=== PATIENT | male | born 1955 | race Caucasian/White ===

== ENCOUNTER 2017-03-15 05:41 | Day surgery (SDC) | payer OTHER ==
[2017-03-15 06:26] LABS: ANION GAP 15.8 MEQ/L (5-15); BLOOD UREA NITROGEN 9 mg/dL (9-20); CHLORIDE 103 mEq/L (98-107); Carbon Dioxide 28.6 mEq/L (21-32); Cholesterol 165 mg/dL (100-200); Glucose 258 MG/DL (70-110); LDL, DIRECT 97 mg/dL (5-99); Potassium 4.9 mEq/L (3.5-5.1); SODIUM 143 mEq/L (136-145); TRIGLYCERIDE 71 mg/dL (30-200)
[2017-03-15] MEDS ORDERED: Lactated Ringers 1,000 ML IV SCH (06:30)
--- NOTE | 2017-03-15 07:55 | OP ---
SURGERY DATE/TIME: 03/15/2017721 PREOPERATIVE DIAGNOSIS: Screening exam. POSTOPERATIVE DIAGNOSIS: Normal colon. PROCEDURE: Colonoscopy. SURGEON: Dr. Montalvo. ANESTHESIA: Medications given by anesthesia department. HISTORY: The patient is a 61 year-old white male patient presenting now for screening colonoscopy. He was appraised of the risks of the procedure including the risk of perforation, phlebitis, untoward reaction to medication, bleeding and missed lesions. The patient verbalized his understanding and desired to have the procedure performed. DESCRIPTION OF PROCEDURE: The patient was given the medications by the anesthesia department. He had continuous pulse oximetry, ECG monitoring, intermittent blood pressure monitoring and tidal CO2 monitoring during the examination. He was placed in the left lateral decubitus position. A digital rectal examination was performed and revealed normal anal sphincter tone and no masses and normal prostate. The flexible Olympus pediatric colonoscope was used to intubate the rectum. A view of the colon was developed sequentially to the cecum. Upon insertion and withdrawal, including a retroflex view in the rectum, no mucosal lesions were encountered. The scope was removed from the patient who tolerated the procedure well and was sent back to OP recovery in good condition. The prep was noted to be fair.
[2017-03-15] MEDS ORDERED: Versed 2 MG/2 ML Injection IV ONE (08:00)
[2017-03-15] MEDS ORDERED: DIPRIVAN 200 MG/20 ML IV ONE (08:00)
[2017-03-15 08:21] VITALS: O2SAT 97
[2017-03-15 09:30] VITALS: BP 142/87; PULSE 83
== END 2017-03-15 09:00 | disposition home or self-care (01) ==
LOC: SDC 05:41
PROVIDERS: ATTEND Family Medicine
PROC: 0DJD8ZZ Inspection of Lower Intestinal Tract, Via Natural or Artificial Opening Endoscopic (ICD-10-PCS; principal; 2017-03-15)
DX: Z12.11 Encounter for screening for malignant neoplasm of colon (principal); E11.9 Type 2 diabetes mellitus without complications; Z79.4 Long term (current) use of insulin; Z79.899 Other long term (current) drug therapy
CPT/HCPCS: 00810; 36415; 80048; 80061; 82962; 83036; 83721; J2250; J2704

== ENCOUNTER 2020-11-13 06:47 | Day surgery (SDC) | payer OTHER | END 2020-11-13 07:40 | disposition home or self-care (01) | LOC: SDC-PAIN 06:47 | PROVIDERS: ATTEND Psychiatry & Neurology Pain Medicine | DX: Z53.09 Procedure and treatment not carried out because of other contraindication (principal); E11.9 Type 2 diabetes mellitus without complications | CPT/HCPCS: 82947 ==

== ENCOUNTER 2020-12-23 13:39 | Observation (INO) | payer OTHER ==
[2020-12-23 14:21] LABS: Absolute Neutrophil Ct (ANC) 9.49 (1.4-6.9); BASOPHIL % 0.4 % (0.0-0.4); Basophil (Absolute #) 0.05 (0-0.4); Eosinophil % 3.1 % (0.00-5.0); Eosinophil (Absolute #) 0.43 (0-0.5); Hematocrit 36.9 % (42-50); Hemoglobin 12.2 gm/dl (12.5-18.0); Lymphocyte (Absolute #) 2.72 (1.0-4.6); Lymphocytes % 19.8 % (24.0-44.0); Mean Cell Volume 84.4 fl (78-100); Mean Corpuscular Hemoglobin 27.9 pg (26-32); Mean Corpuscular Hgb Concent. 33.1 g/dl (32-36); Mean Platelet Volume 9.1 fl (7.5-11.0); Monocyte (Absolute #) 1.08 (0.0-1.3); Monocytes % 7.8 % (0.0-12.0); Neutrophil % 68.9 % (36.0-66.0); Platelet Count 186 K/mm3 (150-450); Red Blood Count 4.37 M/mm3 (4.1-5.6); Red Cell Distribution Width 14.3 % (11.5-14.0); White Blood Count 13.8 K/mm3 (4.0-10.5)
[2020-12-23 14:31] LABS: ALBUMIN 3.6 g/dL (3.5-5.0); ALKALINE PHOSPHATASE 96 U/L (38-126); ANION GAP 9.7 MEQ/L (5-15); BLOOD UREA NITROGEN 21 mg/dL (9-20); CHLORIDE 106 mmol/L (98-107); Carbon Dioxide 24 mmol/L (22-30); Creatinine 1 1.12 mg/dL (0.66-1.25); EST GLOMERULAR FILTRATION RATE > 60.0 ML/MIN; Glucose 228 mg/dL (74-106); Potassium 3.8 mmol/L (3.5-5.1); SGOT/AST 41 U/L (17-59); SGPT/ALT 24 U/L (0-50); SODIUM 136 mmol/L (137-145); Total Protein 6.2 g/dL (6.3-8.2)
--- NOTE | 2020-12-23 14:33 | ERPHSYRPT ---
- History of Present Illness Source: patient Exam Limitations: other (Extremely poor historian) Patient Subjective Stated Complaint: Pt states "I get dizzy lately, for the past 2 weeks and I have been falling. I fell yesterday and really hurt my right foot." Triage Nursing Assessment: Pt presented alert and oriented X 3, skin pwd Pt able to speak in clear full sentences. Pt right lens fabricating machine tender to touch on the top of foot. PT in no apparent respiratory distress Physician History: 65 yo wm who is an extremely poor historian presents by ambulance w lethargy/Frequent falls/R foot injury x 2 wks. Pt denies focal weakness but has been a little dizzy. He also denies fever/cough/dysuria/hematuria/cough/coryza/chest pain/N/V/D. Timing/Duration: other (2 wks) Severity: mild Associated Symptoms: No nausea, No vomiting, No abdominal pain, No shortness of breath, No heartburn, No diaphoresis, No cough, No chills, No chest pain, No fever, No headaches, No loss of appetite, No malaise, No rash, No syncope, No seizure Allergies/Adverse Reactions: Penicillins Allergy (Verified 03/15/17 06:35) Swelling Home Medications: Glipizide 5 mg [Glucotrol 5 MG] 5 mg PO BID 01/12/17 [History] AMITRIPTYLINE HCL 50 mg Tab [AMITRIPTYLINE HCL 50 mg Tablet] 50 mg PO DAILY 12/23/20 [History] Aspirin 81 mg PO DAILY 12/23/20 [History] Atorvastatin Calcium 20 mg PO DAILY 12/23/20 [History] Carvedilol 3.125 mg [Coreg 3.125 MG] 3.125 mg PO BID 12/23/20 [History] Cyclobenzaprine HCl 10 mg [Cyclobenzaprine 10 MG] 10 mg PO TID PRN 12/23/20 [History] Gabapentin 800 mg PO TID 12/23/20 [History] Hydrocodone/Acetaminophen [Hydrocodone-Acetamin 5-325 mg] 1 tab PO Q6H PRN PRN 12/23/20 [History] Meloxicam [Mobic] 15 mg PO DAILY 12/23/20 [History] Sitagliptin Phosphate [Januvia] 25 mg PO DAILY 12/23/20 [History] Hx Tetanus, Diphtheria Vaccination/Date Given: No Hx Influenza Vaccination/Date Given: No Hx Pneumococcal Vaccination/Date Given: No Immunizations Up to Date: Yes Travel Risk - International Travel Have you traveled outside of the country in past 3 weeks: No - Coronavirus Screening Are you exhibiting any of the following symptoms?: No Close contact with a COVID-19 positive Pt in past 14-21 Days: No - Vaccine Status Have you recieved a Covid-19 vaccination: No - Review of Systems Constitutional: No Symptoms, Fatigue, Lethargy Eyes: No Symptoms Ears, Nose, & Throat: No Symptoms Respiratory: No Symptoms Cardiac: No Symptoms Abdominal/Gastrointestinal: No Symptoms Genitourinary Symptoms: No Symptoms Musculoskeletal: No Symptoms, Other (R foot pain s/p fall) Skin: No Symptoms Neurological: Dizziness, Lethargy, Sensory Changes (Diabetic neuropathy), No Focal Weakness, No Headache, No Irritability, No Paralysis, No Parasthesia, No Seizure Psychological: No Symptoms Endocrine: No Symptoms Hematologic/Lymphatic: No Symptoms Immunological/Allergic: No Symptoms - Past Medical History Pertinent Past Medical History: Yes Neurological History: Peripheral Neuropathy Cardiac History: High Cholesterol, Hypertension Respiratory History: No Pertinent History Endocrine Medical History: Diabetes Type II Musculoskeletal History: Arthritis GI Medical History: No Pertinent History History: No Pertinent History Psycho-Social History: No Pertinent History Male Reproductive Disorders: No Pertinent History Other Medical History: Rheumatic Fever, Depression. Sx Hx: L Cubital Tunnel Release, L lower arm sx for mass removal, L Carpal Tunnel Release - Past Surgical History Past Surgical History: Yes Neuro Surgical History: No Pertinent History Cardiac: No Pertinent History Respiratory: No Pertinent History Gastrointestinal: No Pertinent History Genitourinary: No Pertinent History Musculoskeletal: Orthopedic Surgery Male Surgical History: No Pertinent History Other Surgical History: left elbow - Social History Smoking Status: Current every day smoker How long have you smoked: years Exposure to second hand smoke: Yes Drug Use: none Patient Lives Alone: Yes - Nursing Vital Signs Nursing Vital Signs: Initial Vital Signs Temperature 98.3 F 12/23/20 13:41 Pulse Rate 69 12/23/20 13:41 Respiratory Rate 22 12/23/20 13:41 Blood Pressure 129/81 12/23/20 13:41 O2 Sat by Pulse Oximetry 92 L 12/23/20 13:41 Pain Scale Pain Intensity 4 - Physical Exam General Appearance: no apparent distress Eye Exam: PERRL/EOMI, eyes nml inspection Ears, Nose, Throat Exam: normal ENT inspection, TMs normal, pharynx normal, moist mucous membranes Neck Exam: normal inspection, non-tender, supple, full range of motion, No meningismus, No mass, No Brudzinski, No Kernig's Respiratory Exam: normal breath sounds, lungs clear, airway intact, No respiratory distress Cardiovascular Exam: regular rate/rhythm, normal heart sounds, No murmur Gastrointestinal/Abdomen Exam: soft, normal bowel sounds, No tenderness Back Exam: normal inspection, normal range of motion, No CVA tenderness, No vertebral tenderness Extremity Exam: pelvis stable, tenderness (R 4th MTP joint w edema/ecchymosis/Good pedal pulse, distal sensation, and capillary return) Neurologic Exam: alert, oriented x 3, cooperative, merchandise flow associate II-XII nml as tested, normal mood/affect, sensation nml, No motor deficits, No sensory deficit Skin Exam: normal color, warm, dry Lymphatic Exam: No adenopathy SpO2 Interpretation: borderline oxygenation SpO2: 92 O2 Delivery: Room Air - Course Nursing assessment & vital signs reviewed: Yes EKG Interpreted by Me: RATE (Sinus tach/Normal QT-QTc/IVCD/PVC/Old inferior [place]) Ordered Tests: Active Orders 24 hr Category Date Time Status CHEST 1 VIEW (PORTABLE) Stat Exams 12/23/20 13:59 Completed FOOT (MINIMUM 3 VIEWS) Stat Exams 12/23/20 14:28 Completed HEAD WITHOUT CONTRAST [CT] Stat Exams 12/23/20 14:00 Completed BLOOD CULTURE Stat Lab 12/23/20 16:15 Received CBC W DIFF Stat Lab 12/23/20 14:18 Completed CMP Stat Lab 12/23/20 14:18 Completed CULTURE,URINE Stat Lab 12/23/20 15:00 Received Lactic Acid Stat Lab 12/23/20 14:23 Completed TROPONIN Q3H Lab 12/23/20 14:45 Completed TROPONIN Q3H Lab 12/23/20 16:15 Completed UA W/RFX UR CULTURE Stat Lab 12/23/20 15:00 Completed Medication Summary Generic Name Dose Route Start Last Admin Trade Name Freq PRN Reason Stop Dose Admin Carvedilol 3.125 mg 12/23/20 22:00 12/23/20 22:17 Coreg 3.125 Mg PO 01/22/21 21:59 3.125 mg BID COLETTE Administration Cyclobenzaprine HCl 10 mg 12/23/20 21:30 Cyclobenzaprine 10 Mg PO 01/22/21 21:29 TID PRN PRN MUSCLE SPASMS Gabapentin 800 mg 12/23/20 22:00 12/23/20 22:16 Neurontin 400 Mg PO 01/22/21 21:59 800 mg TID COLETTE Administration Glipizide 5 mg 12/24/20 08:00 Glucotrol 5 Mg PO 01/23/21 07:59 BIDWM COLETTE Sodium Chloride 1,000 mls @ 100 mls/hr 12/23/20 17:15 12/23/20 17:42 Sodium Chloride 0.9% 1000 Ml IV 01/22/21 17:14 100 mls/hr .Q10H COLETTE Administration Ceftriaxone Sodium/Dextrose 1 g in 50 mls @ 100 mls/hr 12/24/20 10:00 Rocephin 1 Gm-D5w 50 Ml Bag IV 12/27/20 09:59 Q24H10 COLETTE Insulin Human Lispro 0 unit 12/23/20 17:17 12/23/20 22:16 Humalog SQ 01/22/21 17:16 4 unit UD PRN Administration HYPERGLYCEMIA Ondansetron HCl 4 mg 12/23/20 17:12 Zofran 4 Mg/2 Ml Vial IV 01/22/21 17:11 Q6H PRN PRN NAUSEA/VOMITING Oxycodone/Acetaminophen 1 tab 12/23/20 21:32 12/23/20 22:24 Percocet Tablet 5/325mg PO 12/28/20 21:31 1 tab Q6H PRN PRN Administration PAIN Pantoprazole Sodium 40 mg 12/24/20 10:00 Protonix 40 Mg Iv IV 01/23/21 09:59 Q24H10 COLETTE Discontinued Medications Generic Name Dose Route Start Last Admin Trade Name Freq PRN Reason Stop Dose Admin Hydrocodone Bitart/Acetaminophen Confirm 12/23/20 21:40 [place] 5/325 Mg Administered 12/23/20 21:41 Dose 1 tab .ROUTE .STK-MED ONE Ceftriaxone Sodium/Dextrose 1 g in 50 mls @ 100 mls/hr 12/23/20 15:32 12/23/20 16:11 Rocephin 1 Gm-D5w 50 Ml Bag IV 12/23/20 16:01 Infused STAT STA Infusion Ceftriaxone Sodium/Dextrose Confirm 12/23/20 15:34 Rocephin 1 Gm-D5w 50 Ml Bag Administered 12/23/20 15:35 Dose 1 g in 50 mls @ ud IV .STK-MED ONE Lab/Rad Data: Laboratory Result Diagrams 12/23/20 14:18 12/23/20 14:18 Laboratory Results 12/23/20 12/23/20 12/23/20 Range/Units 16:15 15:53 15:00 WBC (4.0-10.5) K/mm3 RBC (4.1-5.6) M/mm3 Hgb (12.5-18.0) gm/dl Hct (42-50) % MCV (78-100) fl MCH (26-32) pg MCHC (32-36) g/dl RDW (11.5-14.0) % Plt Count (150-450) K/mm3 MPV (7.5-11.0) fl Gran % (36.0-66.0) % Eos # (Auto) (0-0.5) Absolute Lymphs (auto) (1.0-4.6) Absolute Monos (auto) (0.0-1.3) Lymphocytes % (24.0-44.0) % Monocytes % (0.0-12.0) % Eosinophils % (0.00-5.0) % Basophils % (0.0-0.4) % Absolute Granulocytes (1.4-6.9) Basophils # (0-0.4) Sodium (137-145) mmol/L Potassium (3.5-5.1) mmol/L Chloride (98-107) mmol/L Carbon Dioxide (22-30) mmol/L Anion Gap (5-15) MEQ/L BUN (9-20) mg/dL Creatinine (0.66-1.25) mg/dL Estimated GFR ML/MIN Glucose (74-106) mg/dL Lactic Acid (0.4-2.0) Calcium (8.4-10.2) mg/dL Total Bilirubin (0.2-1.3) mg/dL AST (17-59) U/L ALT (0-50) U/L Alkaline Phosphatase (38-126) U/L Troponin I < 0.012 (0.000-0.034) ng/mL Serum Total Protein (6.3-8.2) g/dL Albumin (3.5-5.0) g/dL Urine Color YELLOW (YELLOW) Urine Appearance SLIGHTLY CLOUDY (CLEAR) Urine pH 5.0 (5-6) Ur Specific [place] 1.023 (1.005-1.025) Urine Protein 30 (Negative) Urine Ketones NEGATIVE (NEGATIVE) Urine Blood MODERATE (0-5) Nigel/ul Urine Nitrite NEGATIVE (NEGATIVE) Urine Bilirubin NEGATIVE (NEGATIVE) Urine Urobilinogen NEGATIVE (0-1) mg/dL Ur Leukocyte Esterase TRACE (NEGATIVE) Urine WBC (Auto) 16-25 (0-5) /HPF Urine RBC (Auto) 26-50 (0-2) /HPF U Hyaline Cast (Auto) 6-10 (0-2) /LPF U Epithel Cells (Auto) NONE (FEW) /HPF Urine Bacteria (Auto) NONE (NEGATIVE) /HPF Urine Mucus (Auto) SLIGHT (NEGATIVE) /HPF Urine Culture Reflexed YES (NO) Urine Glucose >=500 (NEGATIVE) mg/dL Influenza Type A Ag NEGATIVE (NEGATIVE) Influenza Type B Ag NEGATIVE (NEGATIVE) RSV (PCR) NEGATIVE (Negative) SARS-CoV-2 (PCR) NEGATIVE (NEGATIVE) 12/23/20 12/23/20 12/23/20 Range/Units 14:45 14:23 14:18 WBC (4.0-10.5) K/mm3 RBC (4.1-5.6) M/mm3 Hgb (12.5-18.0) gm/dl Hct (42-50) % MCV (78-100) fl MCH (26-32) pg MCHC (32-36) g/dl RDW (11.5-14.0) % Plt Count (150-450) K/mm3 MPV (7.5-11.0) fl Gran % (36.0-66.0) % Eos # (Auto) (0-0.5) Absolute Lymphs (auto) (1.0-4.6) Absolute Monos (auto) (0.0-1.3) Lymphocytes % (24.0-44.0) % Monocytes % (0.0-12.0) % Eosinophils % (0.00-5.0) % Basophils % (0.0-0.4) % Absolute Granulocytes (1.4-6.9) Basophils # (0-0.4) Sodium 136 L (137-145) mmol/L Potassium 3.8 (3.5-5.1) mmol/L Chloride 106 (98-107) mmol/L Carbon Dioxide 24 (22-30) mmol/L Anion Gap 9.7 (5-15) MEQ/L BUN 21 H (9-20) mg/dL Creatinine 1.12 (0.66-1.25) mg/dL Estimated GFR > 60.0 ML/MIN Glucose 228 H (74-106) mg/dL Lactic Acid 1.4 (0.4-2.0) Calcium 9.0 (8.4-10.2) mg/dL Total Bilirubin 0.30 (0.2-1.3) mg/dL AST 41 (17-59) U/L ALT 24 (0-50) U/L Alkaline Phosphatase 96 (38-126) U/L Troponin I < 0.012 (0.000-0.034) ng/mL Serum Total Protein 6.2 L (6.3-8.2) g/dL Albumin 3.6 (3.5-5.0) g/dL Urine Color (YELLOW) Urine Appearance (CLEAR) Urine pH (5-6) Ur Specific [place] (1.005-1.025) Urine Protein (Negative) Urine Ketones (NEGATIVE) Urine Blood (0-5) Nigel/ul Urine Nitrite (NEGATIVE) Urine Bilirubin (NEGATIVE) Urine Urobilinogen (0-1) mg/dL Ur Leukocyte Esterase (NEGATIVE) Urine WBC (Auto) (0-5) /HPF Urine RBC (Auto) (0-2) /HPF U Hyaline Cast (Auto) (0-2) /LPF U Epithel Cells (Auto) (FEW) /HPF Urine Bacteria (Auto) (NEGATIVE) /HPF Urine Mucus (Auto) (NEGATIVE) /HPF Urine Culture Reflexed (NO) Urine Glucose (NEGATIVE) mg/dL Influenza Type A Ag (NEGATIVE) Influenza Type B Ag (NEGATIVE) RSV (PCR) (Negative) SARS-CoV-2 (PCR) (NEGATIVE) 12/23/20 Range/Units 14:18 WBC 13.8 H (4.0-10.5) K/mm3 RBC 4.37 (4.1-5.6) M/mm3 Hgb 12.2 L (12.5-18.0) gm/dl Hct 36.9 L (42-50) % MCV 84.4 (78-100) fl MCH 27.9 (26-32) pg MCHC 33.1 (32-36) g/dl RDW 14.3 H (11.5-14.0) % Plt Count 186 (150-450) K/mm3 MPV 9.1 (7.5-11.0) fl Gran % 68.9 H (36.0-66.0) % Eos # (Auto) 0.43 (0-0.5) Absolute Lymphs (auto) 2.72 (1.0-4.6) Absolute Monos (auto) 1.08 (0.0-1.3) Lymphocytes % 19.8 L (24.0-44.0) % Monocytes % 7.8 (0.0-12.0) % Eosinophils % 3.1 (0.00-5.0) % Basophils % 0.4 (0.0-0.4) % Absolute Granulocytes 9.49 H (1.4-6.9) Basophils # 0.05 (0-0.4) Sodium (137-145) mmol/L Potassium (3.5-5.1) mmol/L Chloride (98-107) mmol/L Carbon Dioxide (22-30) mmol/L Anion Gap (5-15) MEQ/L BUN (9-20) mg/dL Creatinine (0.66-1.25) mg/dL Estimated GFR ML/MIN Glucose (74-106) mg/dL Lactic Acid (0.4-2.0) Calcium (8.4-10.2) mg/dL Total Bilirubin (0.2-1.3) mg/dL AST (17-59) U/L ALT (0-50) U/L Alkaline Phosphatase (38-126) U/L Troponin I (0.000-0.034) ng/mL Serum Total Protein (6.3-8.2) g/dL Albumin (3.5-5.0) g/dL Urine Color (YELLOW) Urine Appearance (CLEAR) Urine pH (5-6) Ur Specific [place] (1.005-1.025) Urine Protein (Negative) Urine Ketones (NEGATIVE) Urine Blood (0-5) Nigel/ul Urine Nitrite (NEGATIVE) Urine Bilirubin (NEGATIVE) Urine Urobilinogen (0-1) mg/dL Ur Leukocyte Esterase (NEGATIVE) Urine WBC (Auto) (0-5) /HPF Urine RBC (Auto) (0-2) /HPF U Hyaline Cast (Auto) (0-2) /LPF U Epithel Cells (Auto) (FEW) /HPF Urine Bacteria (Auto) (NEGATIVE) /HPF Urine Mucus (Auto) (NEGATIVE) /HPF Urine Culture Reflexed (NO) Urine Glucose (NEGATIVE) mg/dL Influenza Type A Ag (NEGATIVE) Influenza Type B Ag (NEGATIVE) RSV (PCR) (Negative) SARS-CoV-2 (PCR) (NEGATIVE) - Progress Progress Note: 12/23/20 15:[address] Montalvo for UTI Counseled pt/family regarding: lab results, diagnosis, rad results - Departure Departure Disposition: Observation Clinical Impression: UTI (urinary tract infection) Condition: Stable Critical Care Time: No
--- NOTE | 2020-12-23 14:47 | XRAY ---
Indication: Lethargy. Weakness. Comparison: None Portable apical lordotic chest clear. Heart and mediastinal structures within normal limits with incidental right perihilar calcified nodes. Bony thorax intact with mild osteopenia and degenerative changes. Impression: Nonacute chest with chronic features.
--- NOTE | 2020-12-23 14:49 | XRAY ---
Indication: Bruising and swelling following fall. Comparison: None 3 nonweightbearing views right foot demonstrates diffuse soft tissue swelling/edema, moderate/advanced 1st MTP degenerative arthropathy, large heel spurs, and small anterior ankle heterotopic ossification. No other bony, articular, or soft tissue abnormalities.
--- NOTE | 2020-12-23 14:51 | XRAY ---
Indication: Lethargy and weakness. Falls. Multiple contiguous axial images obtained through the head without contrast. Comparison: None Age-appropriate global atrophy. No acute intracranial hemorrhage, abnormal extra-axial fluid collection, or mass effect. Fourth ventricle is midline without hydrocephalus. Bianchi-white matter differentiation preserved. Bony calvarium intact. Partial opacification of both mastoid air cells presumed inflammatory. Visualized paranasal sinuses are clear. Impression: Partial opacifications both mastoid air cells presumed inflammatory. Remaining CT head without contrast exam is negative.
[2020-12-23 15:15] LABS: Appearance SLIGHTLY CLOUDY (CLEAR); Bilirubin NEGATIVE (NEGATIVE); Blood MODERATE Ery/ul (0-5); Glucose >=500 mg/dL (NEGATIVE); Ketones NEGATIVE (NEGATIVE); Leukocyte Esterase TRACE (NEGATIVE); Mucus SLIGHT /HPF (NEGATIVE); Nitrite NEGATIVE (NEGATIVE); Protein,Urine Dip 30 (Negative); RBC 26-50 /HPF (0-2); Specific Gravity 1.023 (1.005-1.025); Urobilinogen NEGATIVE mg/dL (0-1)
[2020-12-23] MEDS ORDERED: ROCEPHIN 1 Gm-D5w 50 ml Bag** 1 G/50 ML IVPB IV STA (15:32)
[2020-12-23] MEDS ORDERED: ROCEPHIN 1 Gm-D5w 50 ml Bag** 1 G/50 ML IVPB IV ONE (15:34)
[2020-12-23 17:01] LABS: INFLUENZA A NEGATIVE (NEGATIVE); INFLUENZA B NEGATIVE (NEGATIVE); RESPIRATORY SYNCTIAL VIRUS NEGATIVE (Negative)
[2020-12-23] MEDS ORDERED: Zofran 4 MG/2 ML VIAL IV PRN (17:12)
[2020-12-23] MEDS: Sodium Chloride 0.9% 1000 ML 1,000 ML IV SCH (17:42)
[2020-12-23] MEDS ORDERED: Cyclobenzaprine 10 MG PO PRN (21:30)
[2020-12-23] MEDS ORDERED: PERCOCET TABLET 5/325MG PO PRN (21:32)
[2020-12-23] MEDS ORDERED: NORCO 5/325 MG ONE (21:40)
[2020-12-23] MEDS: HUMALOG SQ PRN (22:16)
[2020-12-23] MEDS: Neurontin 400 MG PO SCH (22:16)
[2020-12-23] MEDS: Coreg 3.125 MG PO SCH (22:17)
[2020-12-24] MEDS: Sodium Chloride 0.9% 1000 ML 1,000 ML IV SCH ×2 (03:23→14:45)
[2020-12-24 07:51] LABS: Absolute Neutrophil Ct (ANC) 9.06 (1.4-6.9); BASOPHIL % 0.3 % (0.0-0.4); Basophil (Absolute #) 0.04 (0-0.4); Eosinophil % 3.3 % (0.00-5.0); Eosinophil (Absolute #) 0.42 (0-0.5); Hematocrit 38.6 % (42-50); Hemoglobin 12.5 gm/dl (12.5-18.0); Lymphocyte (Absolute #) 2.29 (1.0-4.6); Mean Cell Volume 84.6 fl (78-100); Mean Corpuscular Hemoglobin 27.4 pg (26-32); Mean Corpuscular Hgb Concent. 32.4 g/dl (32-36); Monocyte (Absolute #) 0.94 (0.0-1.3); Monocytes % 7.4 % (0.0-12.0); Platelet Count 185 K/mm3 (150-450); Red Blood Count 4.56 M/mm3 (4.1-5.6); Red Cell Distribution Width 14.5 % (11.5-14.0); White Blood Count 12.8 K/mm3 (4.0-10.5)
[2020-12-24] MEDS ORDERED: Glucotrol 5 MG PO SCH (08:00)
[2020-12-24 08:10] LABS: ALBUMIN 3.5 g/dL (3.5-5.0); ALKALINE PHOSPHATASE 97 U/L (38-126); ANION GAP 8.7 MEQ/L (5-15); BLOOD UREA NITROGEN 12 mg/dL (9-20); CHLORIDE 106 mmol/L (98-107); Calcium 8.1 mg/dL (8.4-10.2); Carbon Dioxide 25 mmol/L (22-30); Creatinine 1 0.79 mg/dL (0.66-1.25); EST GLOMERULAR FILTRATION RATE > 60.0 ML/MIN; Glucose 226 mg/dL (74-106); SGOT/AST 34 U/L (17-59); SGPT/ALT 23 U/L (0-50); SODIUM 136 mmol/L (137-145); Total Protein 6.2 g/dL (6.3-8.2)
[2020-12-24] MEDS: Coreg 3.125 MG PO SCH (09:46)
[2020-12-24] MEDS: Neurontin 400 MG PO SCH ×2 (09:48→14:45)
[2020-12-24] MEDS ORDERED: NORCO 5/325 MG PO PRN (09:53)
[2020-12-24] MEDS ORDERED: MELOXICAM PO SCH (10:00)
[2020-12-24] MEDS ORDERED: NON-FORMULARY ITEM (Meloxicam [Mobic] 15 MG) PO SCH (10:00)
[2020-12-24] MEDS ORDERED: PROTONIX 40 MG IV IV SCH (10:00)
[2020-12-24] MEDS ORDERED: NON-FORMULARY ITEM (Atorvastatin Calcium [Atorvastatin Calcium] 20 MG) PO SCH (10:00)
[2020-12-24] MEDS ORDERED: NON-FORMULARY ITEM (Sitagliptin Phosphate [Januvia] 25 MG) PO SCH (10:00)
[2020-12-24] MEDS ORDERED: ECOTRIN 81 MG PO SCH (10:00)
[2020-12-24] MEDS ORDERED: ROCEPHIN 1 Gm-D5w 50 ml Bag** 1 G/50 ML IVPB IV SCH (10:00)
[2020-12-24] MEDS ORDERED: Januvia 50 MG PO SCH (10:00)
[2020-12-24] MEDS ORDERED: NON-FORMULARY ITEM (Aspirin [Aspirin] 81 MG) PO SCH (10:00)
[2020-12-24] MEDS: HUMALOG SQ PRN (12:08)
[2020-12-24 12:31] VITALS: PULSE 83; O2SAT 94
--- NOTE | 2020-12-24 13:14 | PCM.CONS ---
Podiatry HPI - Consult Date of Consultation Date: 12/24/20 Reason for Consult: Contusion right foot Consulting Provider: MIGUEL GIVENS DPM - [facility] History of Present Illness: Mr. Reynolds is a very pleasant 65-year-old male who presents today with complaints of right foot pain status post a injury to the right foot. He indicates that he has been experiencing falls in the last 2 weeks and indicates that he has some severe pain to the right foot he does indicate that there have been episodes of dizziness prior to the falls. He indicates that this is not a chronic issue. He denies any constitutional symptoms of infection. He denies any other pedal complaints at this time Medications & Allergies Home Medications: Home Medication List Glipizide 5 mg [Glucotrol 5 MG] 5 mg PO BID 01/12/17 [History Confirmed 12/23/20] AMITRIPTYLINE HCL 50 mg Tab [AMITRIPTYLINE HCL 50 mg Tablet] 50 mg PO DAILY 12/23/20 [History Confirmed 12/23/20] Aspirin 81 mg PO DAILY 12/23/20 [History Confirmed 12/23/20] Atorvastatin Calcium 20 mg PO DAILY 12/23/20 [History Confirmed 12/23/20] Carvedilol 3.125 mg [Coreg 3.125 MG] 3.125 mg PO BID 12/23/20 [History Confirmed 12/23/20] Cyclobenzaprine HCl 10 mg [Cyclobenzaprine 10 MG] 10 mg PO TID PRN 12/23/20 [History Confirmed 12/23/20] Gabapentin 800 mg PO TID 12/23/20 [History Confirmed 12/23/20] Hydrocodone/Acetaminophen [Hydrocodone-Acetamin 5-325 mg] 1 tab PO Q6H PRN PRN 12/23/20 [History Confirmed 12/23/20] Meloxicam [Mobic] 15 mg PO DAILY 12/23/20 [History Confirmed 12/23/20] Sitagliptin Phosphate [Januvia] 25 mg PO DAILY 12/23/20 [History Confirmed 12/23/20] Allergies/Adverse Reactions: Allergies Allergy/AdvReac Type Severity Reaction Status Date / Time Penicillins Allergy Swelling Verified 03/15/17 06:35 - Past Medical History Past Medical History: Yes Neurological History: Peripheral Neuropathy Cardiac History: High Cholesterol, Hypertension Respiratory History: No Pertinent History Endocrine Medical History: Diabetes Type II Musculoskelatal History: Arthritis GI Medical History: No Pertinent History History: No Pertinent History Pyscho-Social History: No Pertinent History Male Reproductive Disorders: No Pertinent History Comment: Rheumatic Fever, Depression. Sx Hx: L Cubital Tunnel Release, L lower arm sx for mass removal, L Carpal Tunnel Release - Past Surgical History Past Surgical History: Yes Neuro Surgical History: No Pertinent History Cardiac History: No Pertinent History Respiratory Surgery: No Pertinent History GI Surgical History: No Pertinent History Genitourinary Surgical Hx: No Pertinent History Musculskeletal Surgical Hx: Orthopedic Surgery Male Surgical History: No Pertinent History Other Surgical History: left elbow - Social History Smoking Status: Current every day smoker How long have you smoked: years Exposure to second hand smoke: Yes Alcohol: None Drug Use: none Physical Exam - General General Appearance: no apparent distress - Neuro Neurologic: Epicritic and protopathic - Vascular Peripheral Pulses: Posterior tibialis: 2+, Dorsalis-Pedis: 0 Capillary Refill Time: < 3 seconds Hair Growth: Diminished Varicosities: Positive Edema: Non-pitting (The dorsal aspect of the right foot) Skin: Mild edema (Dorsal aspect of right foot with ecchymosis and swelling that is nonpitting in nature. Painful to the touch.) Skin Temperature: Warm to touch (From tibial tuberosity to the dorsal aspect of digits bilaterally.) - Muscular Foot Type: pes planu Muscle Strength: 5/5 on all 4 quadrants (Musculoskeletal exam diminished due to guarding from pain.) Joint ROM: Limited ROM Equinus: Gastorocnemius equinus - Narrative Narrative Physical Exam: Podiatry Physical Exam Results - Labs Lab/Micro Results: Lab Results-Last 24 Hours 12/23/20 12/23/20 12/23/20 Range/Units 14:18 14:18 14:23 WBC 13.8 H (4.0-10.5) K/mm3 RBC 4.37 (4.1-5.6) M/mm3 Hgb 12.2 L (12.5-18.0) gm/dl Hct 36.9 L (42-50) % MCV 84.4 (78-100) fl MCH 27.9 (26-32) pg MCHC 33.1 (32-36) g/dl RDW 14.3 H (11.5-14.0) % Plt Count 186 (150-450) K/mm3 MPV 9.1 (7.5-11.0) fl Gran % 68.9 H (36.0-66.0) % Eos # (Auto) 0.43 (0-0.5) Absolute Lymphs (auto) 2.72 (1.0-4.6) Absolute Monos (auto) 1.08 (0.0-1.3) Lymphocytes % 19.8 L (24.0-44.0) % Monocytes % 7.8 (0.0-12.0) % Eosinophils % 3.1 (0.00-5.0) % Basophils % 0.4 (0.0-0.4) % Absolute Granulocytes 9.49 H (1.4-6.9) Basophils # 0.05 (0-0.4) Sodium 136 L (137-145) mmol/L Potassium 3.8 (3.5-5.1) mmol/L Chloride 106 (98-107) mmol/L Carbon Dioxide 24 (22-30) mmol/L Anion Gap 9.7 (5-15) MEQ/L BUN 21 H (9-20) mg/dL Creatinine 1.12 (0.66-1.25) mg/dL Estimated GFR > 60.0 ML/MIN Glucose 228 H (74-106) mg/dL POC Glucometer (74 to 106) mg/dL Hemoglobin A1c (4.5-6.0) % Lactic Acid 1.4 (0.4-2.0) Calcium 9.0 (8.4-10.2) mg/dL Total Bilirubin 0.30 (0.2-1.3) mg/dL AST 41 (17-59) U/L ALT 24 (0-50) U/L Alkaline Phosphatase 96 (38-126) U/L Troponin I (0.000-0.034) ng/mL Serum Total Protein 6.2 L (6.3-8.2) g/dL Albumin 3.6 (3.5-5.0) g/dL Urine Color (YELLOW) Urine Appearance (CLEAR) Urine pH (5-6) Ur Specific [place] (1.005-1.025) Urine Protein (Negative) Urine Ketones (NEGATIVE) Urine Blood (0-5) Nigel/ul Urine Nitrite (NEGATIVE) Urine Bilirubin (NEGATIVE) Urine Urobilinogen (0-1) mg/dL Ur Leukocyte Esterase (NEGATIVE) Urine WBC (Auto) (0-5) /HPF Urine RBC (Auto) (0-2) /HPF U Hyaline Cast (Auto) (0-2) /LPF U Epithel Cells (Auto) (FEW) /HPF Urine Bacteria (Auto) (NEGATIVE) /HPF Urine Mucus (Auto) (NEGATIVE) /HPF Urine Culture Reflexed (NO) Urine Glucose (NEGATIVE) mg/dL Influenza Type A Ag (NEGATIVE) Influenza Type B Ag (NEGATIVE) RSV (PCR) (Negative) SARS-CoV-2 (PCR) (NEGATIVE) 12/23/20 12/23/20 12/23/20 Range/Units 14:45 15:00 15:53 WBC (4.0-10.5) K/mm3 RBC (4.1-5.6) M/mm3 Hgb (12.5-18.0) gm/dl Hct (42-50) % MCV (78-100) fl MCH (26-32) pg MCHC (32-36) g/dl RDW (11.5-14.0) % Plt Count (150-450) K/mm3 MPV (7.5-11.0) fl Gran % (36.0-66.0) % Eos # (Auto) (0-0.5) Absolute Lymphs (auto) (1.0-4.6) Absolute Monos (auto) (0.0-1.3) Lymphocytes % (24.0-44.0) % Monocytes % (0.0-12.0) % Eosinophils % (0.00-5.0) % Basophils % (0.0-0.4) % Absolute Granulocytes (1.4-6.9) Basophils # (0-0.4) Sodium (137-145) mmol/L Potassium (3.5-5.1) mmol/L Chloride (98-107) mmol/L Carbon Dioxide (22-30) mmol/L Anion Gap (5-15) MEQ/L BUN (9-20) mg/dL Creatinine (0.66-1.25) mg/dL Estimated GFR ML/MIN Glucose (74-106) mg/dL POC Glucometer (74 to 106) mg/dL Hemoglobin A1c (4.5-6.0) % Lactic Acid (0.4-2.0) Calcium (8.4-10.2) mg/dL Total Bilirubin (0.2-1.3) mg/dL AST (17-59) U/L ALT (0-50) U/L Alkaline Phosphatase (38-126) U/L Troponin I < 0.012 (0.000-0.034) ng/mL Serum Total Protein (6.3-8.2) g/dL Albumin (3.5-5.0) g/dL Urine Color YELLOW (YELLOW) Urine Appearance SLIGHTLY CLOUDY (CLEAR) Urine pH 5.0 (5-6) Ur Specific [place] 1.023 (1.005-1.025) Urine Protein 30 (Negative) Urine Ketones NEGATIVE (NEGATIVE) Urine Blood MODERATE (0-5) Nigel/ul Urine Nitrite NEGATIVE (NEGATIVE) Urine Bilirubin NEGATIVE (NEGATIVE) Urine Urobilinogen NEGATIVE (0-1) mg/dL Ur Leukocyte Esterase TRACE (NEGATIVE) Urine WBC (Auto) 16-25 (0-5) /HPF Urine RBC (Auto) 26-50 (0-2) /HPF U Hyaline Cast (Auto) 6-10 (0-2) /LPF U Epithel Cells (Auto) NONE (FEW) /HPF Urine Bacteria (Auto) NONE (NEGATIVE) /HPF Urine Mucus (Auto) SLIGHT (NEGATIVE) /HPF Urine Culture Reflexed YES (NO) Urine Glucose >=500 (NEGATIVE) mg/dL Influenza Type A Ag NEGATIVE (NEGATIVE) Influenza Type B Ag NEGATIVE (NEGATIVE) RSV (PCR) NEGATIVE (Negative) SARS-CoV-2 (PCR) NEGATIVE (NEGATIVE) 12/23/20 12/23/20 12/23/20 Range/Units 16:15 18:15 21:15 WBC (4.0-10.5) K/mm3 RBC (4.1-5.6) M/mm3 Hgb (12.5-18.0) gm/dl Hct (42-50) % MCV (78-100) fl MCH (26-32) pg MCHC (32-36) g/dl RDW (11.5-14.0) % Plt Count (150-450) K/mm3 MPV (7.5-11.0) fl Gran % (36.0-66.0) % Eos # (Auto) (0-0.5) Absolute Lymphs (auto) (1.0-4.6) Absolute Monos (auto) (0.0-1.3) Lymphocytes % (24.0-44.0) % Monocytes % (0.0-12.0) % Eosinophils % (0.00-5.0) % Basophils % (0.0-0.4) % Absolute Granulocytes (1.4-6.9) Basophils # (0-0.4) Sodium (137-145) mmol/L Potassium (3.5-5.1) mmol/L Chloride (98-107) mmol/L Carbon Dioxide (22-30) mmol/L Anion Gap (5-15) MEQ/L BUN (9-20) mg/dL Creatinine (0.66-1.25) mg/dL Estimated GFR ML/MIN Glucose (74-106) mg/dL POC Glucometer 269 H (74 to 106) mg/dL Hemoglobin A1c 11.07 H (4.5-6.0) % Lactic Acid (0.4-2.0) Calcium (8.4-10.2) mg/dL Total Bilirubin (0.2-1.3) mg/dL AST (17-59) U/L ALT (0-50) U/L Alkaline Phosphatase (38-126) U/L Troponin I < 0.012 (0.000-0.034) ng/mL Serum Total Protein (6.3-8.2) g/dL Albumin (3.5-5.0) g/dL Urine Color (YELLOW) Urine Appearance (CLEAR) Urine pH (5-6) Ur Specific [place] (1.005-1.025) Urine Protein (Negative) Urine Ketones (NEGATIVE) Urine Blood (0-5) Nigel/ul Urine Nitrite (NEGATIVE) Urine Bilirubin (NEGATIVE) Urine Urobilinogen (0-1) mg/dL Ur Leukocyte Esterase (NEGATIVE) Urine WBC (Auto) (0-5) /HPF Urine RBC (Auto) (0-2) /HPF U Hyaline Cast (Auto) (0-2) /LPF U Epithel Cells (Auto) (FEW) /HPF Urine Bacteria (Auto) (NEGATIVE) /HPF Urine Mucus (Auto) (NEGATIVE) /HPF Urine Culture Reflexed (NO) Urine Glucose (NEGATIVE) mg/dL Influenza Type A Ag (NEGATIVE) Influenza Type B Ag (NEGATIVE) RSV (PCR) (Negative) SARS-CoV-2 (PCR) (NEGATIVE) 12/24/20 12/24/20 12/24/20 Range/Units 06:50 07:30 07:30 WBC 12.8 H (4.0-10.5) K/mm3 RBC 4.56 (4.1-5.6) M/mm3 Hgb 12.5 (12.5-18.0) gm/dl Hct 38.6 L (42-50) % MCV 84.6 (78-100) fl MCH 27.4 (26-32) pg MCHC 32.4 (32-36) g/dl RDW 14.5 H (11.5-14.0) % Plt Count 185 (150-450) K/mm3 MPV 9.0 (7.5-11.0) fl Gran % 71.0 H (36.0-66.0) % Eos # (Auto) 0.42 (0-0.5) Absolute Lymphs (auto) 2.29 (1.0-4.6) Absolute Monos (auto) 0.94 (0.0-1.3) Lymphocytes % 18.0 L (24.0-44.0) % Monocytes % 7.4 (0.0-12.0) % Eosinophils % 3.3 (0.00-5.0) % Basophils % 0.3 (0.0-0.4) % Absolute Granulocytes 9.06 H (1.4-6.9) Basophils # 0.04 (0-0.4) Sodium 136 L (137-145) mmol/L Potassium 4.0 (3.5-5.1) mmol/L Chloride 106 (98-107) mmol/L Carbon Dioxide 25 (22-30) mmol/L Anion Gap 8.7 (5-15) MEQ/L BUN 12 (9-20) mg/dL Creatinine 0.79 (0.66-1.25) mg/dL Estimated GFR > 60.0 ML/MIN Glucose 226 H (74-106) mg/dL POC Glucometer 221 H (74 to 106) mg/dL Hemoglobin A1c (4.5-6.0) % Lactic Acid (0.4-2.0) Calcium 8.1 L (8.4-10.2) mg/dL Total Bilirubin 0.60 (0.2-1.3) mg/dL AST 34 (17-59) U/L ALT 23 (0-50) U/L Alkaline Phosphatase 97 (38-126) U/L Troponin I (0.000-0.034) ng/mL Serum Total Protein 6.2 L (6.3-8.2) g/dL Albumin 3.5 (3.5-5.0) g/dL Urine Color (YELLOW) Urine Appearance (CLEAR) Urine pH (5-6) Ur Specific [place] (1.005-1.025) Urine Protein (Negative) Urine Ketones (NEGATIVE) Urine Blood (0-5) Nigel/ul Urine Nitrite (NEGATIVE) Urine Bilirubin (NEGATIVE) Urine Urobilinogen (0-1) mg/dL Ur Leukocyte Esterase (NEGATIVE) Urine WBC (Auto) (0-5) /HPF Urine RBC (Auto) (0-2) /HPF U Hyaline Cast (Auto) (0-2) /LPF U Epithel Cells (Auto) (FEW) /HPF Urine Bacteria (Auto) (NEGATIVE) /HPF Urine Mucus (Auto) (NEGATIVE) /HPF Urine Culture Reflexed (NO) Urine Glucose (NEGATIVE) mg/dL Influenza Type A Ag (NEGATIVE) Influenza Type B Ag (NEGATIVE) RSV (PCR) (Negative) SARS-CoV-2 (PCR) (NEGATIVE) 12/24/20 Range/Units 11:56 WBC (4.0-10.5) K/mm3 RBC (4.1-5.6) M/mm3 Hgb (12.5-18.0) gm/dl Hct (42-50) % MCV (78-100) fl MCH (26-32) pg MCHC (32-36) g/dl RDW (11.5-14.0) % Plt Count (150-450) K/mm3 MPV (7.5-11.0) fl Gran % (36.0-66.0) % Eos # (Auto) (0-0.5) Absolute Lymphs (auto) (1.0-4.6) Absolute Monos (auto) (0.0-1.3) Lymphocytes % (24.0-44.0) % Monocytes % (0.0-12.0) % Eosinophils % (0.00-5.0) % Basophils % (0.0-0.4) % Absolute Granulocytes (1.4-6.9) Basophils # (0-0.4) Sodium (137-145) mmol/L Potassium (3.5-5.1) mmol/L Chloride (98-107) mmol/L Carbon Dioxide (22-30) mmol/L Anion Gap (5-15) MEQ/L BUN (9-20) mg/dL Creatinine (0.66-1.25) mg/dL Estimated GFR ML/MIN Glucose (74-106) mg/dL POC Glucometer 253 H (74 to 106) mg/dL Hemoglobin A1c (4.5-6.0) % Lactic Acid (0.4-2.0) Calcium (8.4-10.2) mg/dL Total Bilirubin (0.2-1.3) mg/dL AST (17-59) U/L ALT (0-50) U/L Alkaline Phosphatase (38-126) U/L Troponin I (0.000-0.034) ng/mL Serum Total Protein (6.3-8.2) g/dL Albumin (3.5-5.0) g/dL Urine Color (YELLOW) Urine Appearance (CLEAR) Urine pH (5-6) Ur Specific [place] (1.005-1.025) Urine Protein (Negative) Urine Ketones (NEGATIVE) Urine Blood (0-5) Nigel/ul Urine Nitrite (NEGATIVE) Urine Bilirubin (NEGATIVE) Urine Urobilinogen (0-1) mg/dL Ur Leukocyte Esterase (NEGATIVE) Urine WBC (Auto) (0-5) /HPF Urine RBC (Auto) (0-2) /HPF U Hyaline Cast (Auto) (0-2) /LPF U Epithel Cells (Auto) (FEW) /HPF Urine Bacteria (Auto) (NEGATIVE) /HPF Urine Mucus (Auto) (NEGATIVE) /HPF Urine Culture Reflexed (NO) Urine Glucose (NEGATIVE) mg/dL Influenza Type A Ag (NEGATIVE) Influenza Type B Ag (NEGATIVE) RSV (PCR) (Negative) SARS-CoV-2 (PCR) (NEGATIVE) Microbiology 12/23/20 15:00 Urine Culture - Preliminary Clean Catch Midstream NO GROWTH TO DATE Accuchecks Date 12/23/20 Time 21:15 - Radiology Impressions Radiology Exams & Impressions: Radiology Procedures Category Date Time Status CHEST 1 VIEW (PORTABLE) Stat Exams 12/23/20 13:59 Completed FOOT (MINIMUM 3 VIEWS) Stat Exams 12/23/20 14:28 Completed HEAD WITHOUT CONTRAST [CT] Stat Exams 12/23/20 14:00 Completed Assessment/Plan (1) Contusion of right foot including toes Current Visit: Yes Status: Acute Assessment & Plan: Initial patient examination and evaluation. Radiographs reviewed demonstrating soft tissue swelling in the area of interest and contusion however no osseous injuries. There is significant first metatarsophalangeal joint osteoarthritis with some significant shortening of the first metatarsal anterior tibial osteophyte at the distal tibiotalar joint. Dorsal spurring of all midfoot joints to some extent there appears to be a osteochondroma at the dorsal aspect of the first metatarsal head. Other joint spaces within normal limits to the right lower extremity. No other soft tissue or osseous abnormalities Patient does have acute injury within the last 2 weeks and pain is likely a result of the contusion however there is some concern regarding possible damage to the stalk of the osteochondroma which would explain if there is pain in a chronic nature and continued. At this time patient would benefit from compression therapy and allowing for the acute injury to phase into subacute timeframe in order to see if there is an improvement in his symptomatology. Patient also does have some significant osteoarthritis of the first MPJ which may be exacerbating his symptomatology of right foot pain however he is not of concern from an inpatient standpoint and would require follow-up in an outpatient standpoint. Patient is a diabetic and a smoker and likely would not be a good surgical candidate however if there is a fracture of the osteochondroma stock this may need to be considered for removal in order for patient to ambulate without pain. Patient being followed by Dr. Montalvo for possible UTI. No further surgical or conservative intervention necessitated from my standpoint at this time. Patient to follow-up In 2 weeks rrom discharge date in clinic for reassessment and at that time a new set of x-rays will be obtained. Code(s): S90.31XA - CONTUSION OF RIGHT FOOT, INITIAL ENCOUNTER; S90.121A - CONTUSION OF RIGHT LESSER TOE(S) W/O DAMAGE TO NAIL, INIT (2) Pain in right foot Current Visit: Yes Status: Acute Code(s): M79.671 - PAIN IN RIGHT FOOT (3) Localized edema Current Visit: Yes Status: Acute Code(s): R60.0 - LOCALIZED EDEMA (4) Diabetes mellitus type 2 in nonobese Current Visit: Yes Status: Acute Code(s): E11.9 - TYPE 2 DIABETES MELLITUS WITHOUT COMPLICATIONS
--- NOTE | 2020-12-24 13:31 | HP ---
CHIEF COMPLAINT: Dizzy, fall, foot injury, diabetes. HISTORY OF PRESENT ILLNESS: The patient is a 65 year-old white male patient diabetic who apparently reports over the past couple of weeks he has been getting lightheaded and today he fell injuring his right foot. It has been very painful. He presented to the emergency room for evaluation and further management. The patient was found to have an elevation in his white count in the emergency room as well as white cells in the urine although the patient denies any urinary symptoms whatsoever. PAST MEDICAL/SURGICAL HISTORY: The patient has underlying illness of poorly controlled diabetes type II, hypertension, hyperlipidemia, peripheral neuropathy, arthritis pain. He has previous history of rheumatic fever. 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 HOME MEDICATIONS: Gabapentin 800 mg t.i.d., glipizide 5 mg b.i.d., Requip 3 mg at night and Zocor 10 mg at night, Mobic 15 mg a day. ALLERGIES: PENICILLIN. PHYSICAL EXAMINATION: His vital signs on admission showed temperature 98.3F, pulse 69, respiratory rate 22 and blood pressure 129/81. O2 saturation 92% on room air. HEENT: Normocephalic, atraumatic. Pupils equal round reactive to light. Extraocular movements intact. Oropharynx is somewhat dry. NECK: Supple without lymphadenopathy, thyromegaly or JVD. CHEST: Clear to auscultation3 HEART: Regular rate and rhythm without murmurs, rubs or gallops. ABDOMEN: Soft. No palpable masses. EXTREMITIES: Without cyanosis, clubbing or edema. There is significant bruising over right forefoot. NEUROLOGIC: The patient is alert and oriented x3 with no focal deficits noted. LAB DATA AND TESTS: His laboratory studies showed his A1C to be 11.07. He was negative on COVID, influenza and RSV. His troponin was less than 0.012. Urine showed greater than 500 glucose and 30 on the protein, white count was 16-25, red blood cells 26-50, hyaline cast 6-10. He had glucose of 228 nonfasting, BUN 29, creatinine 1.12. Electrolytes were normal. Liver enzymes were normal. Lactic acid was 1.4. White count 13.8, hemoglobin 12.2, PLT count 186,000. His head CT was essentially negative with exception of mastoid air cells opacification presumed inflammatory. Remaining CT head without contrast was negative. His right foot showed diffuse soft tissue swelling and edema, moderate to advanced first MTP degenerative arthropathy, large heel spurs but no fractures were noted. Chest x-ray nonacute with chronic features. His EKG showed left axis deviation, decreased R-wave across the precordial lead and no ST-T wave changes, underlying rhythm was sinus tachycardia at 108. ASSESSMENT: A patient with frequent falls recently with dehydration likely partially secondary to diabetic peripheral neuropathy with the inability to feel his feet well. The patient now has significant sprain to his foot. We will have Dr. Carlos Toney take a look at him for us. We will also have physical therapy see him for evaluation safety for ambulation. We will address his diabetic medications to make his glipizide twice daily. We will also be adding a new diabetic medication once he is more stable to try to help get his A1C under better control. He has been placed empirically on Rocephin for urinary tract infection, will check procalcitonin level on his initial evaluations to see if it looks more bacterial. In the meantime will continue Rocephin by changing his IV fluids to saline lock at this time. He is encouraged to drink fluids.
[2020-12-24 16:46] VITALS: BP 139/76
[2020-12-24] MEDS ORDERED: ZOCOR 20MG PO SCH (22:00)
== END 2020-12-24 17:10 | disposition home health service (06) ==
LOC: ED 13:39 → MED SURG 17:27
PROVIDERS: ADMIT Family Medicine; ATTEND Family Medicine
DX: S90.31XA Contusion of right foot, initial encounter (principal); S90.121A Contusion of right lesser toe(s) without damage to nail, initial encounter; M79.671 Pain in right foot; N39.0 Urinary tract infection, site not specified; E11.9 Type 2 diabetes mellitus without complications; W19.XXXA Unspecified fall, initial encounter; R42 Dizziness and giddiness; Z79.899 Other long term (current) drug therapy; I10 Essential (primary) hypertension; E78.01 Familial hypercholesterolemia; F17.200 Nicotine dependence, unspecified, uncomplicated; E78.5 Hyperlipidemia, unspecified; E86.0 Dehydration; Z20.828 Contact with and (suspected) exposure to other viral communicable diseases; D72.829 Elevated white blood cell count, unspecified; R29.6 Repeated falls
CPT/HCPCS: 0241U; 36415; 70450; 71045; 73630; 80053; 81001; 82947; 83036; 83605; 84484; 85025; 87040; 87086; 96365; 97161; 99225; 99285; G0378; J0696; J1817; A9270-GY

== ENCOUNTER 2022-11-21 04:29 | Emergency (ER) | payer MEDICARE ==
--- NOTE | 2022-11-21 05:04 | ERPHSYRPT ---
<AIDAN MAZARIEGOS - Last Filed: 11/21/22 07:25> - History of Present Illness Historian: patient Exam Limitations: other (Poor historian) Patient Subjective Stated Complaint: pt states he has not had a bowel movement for 4 days, had 1 chemo treatment on the 10th of this month for esophageal cancer, states he has a sharp pain in his rectum Triage Nursing Assessment: pt alert and oriented, able to answer queastions,laying in bed at this time Timing/Duration: other (4 days) Quality: fullness Abdominal Pain Onset Location: other (Rectal) Severity of Pain-Max: moderate Severity of Pain-Current: moderate Modifying Factors: Improves With: defecating Associated Symptoms: denies symptoms Previous symptoms: no prior history Hx Tetanus, Diphtheria Vaccination/Date Given: No Hx Influenza Vaccination/Date Given: No Hx Pneumococcal Vaccination/Date Given: No <SHELDON VELASCO - Last Filed: 11/24/22 07:40> - History of Present Illness Physician History: 67 yo WM w constipation x 4 days. Pt has mild to moderate rectal pain. He is currently undergoing chemo for lung Ca. Pt denies melena/hematochezia/fever/dysuria/hematuria. He denies narcotic use for his cancer. (SHELDON VELASCO) Allergies/Adverse Reactions: Penicillins Allergy (Verified 03/15/17 06:35) Swelling Home Medications: Glipizide 5 mg [Glucotrol 5 MG] 5 mg PO BID 01/12/17 [History] AMITRIPTYLINE HCL 50 mg Tab [AMITRIPTYLINE HCL 50 mg Tablet] 50 mg PO DAILY 12/23/20 [History] Aspirin 81 mg PO DAILY 12/23/20 [History] Atorvastatin Calcium 20 mg PO DAILY 12/23/20 [History] Carvedilol 3.125 mg [Coreg 3.125 MG] 3.125 mg PO BID 12/23/20 [History] Cyclobenzaprine HCl 10 mg [Cyclobenzaprine 10 MG] 10 mg PO TID PRN 12/23/20 [History] Gabapentin 800 mg PO TID 12/23/20 [History] Hydrocodone/Acetaminophen [Hydrocodone-Acetamin 5-325 mg] 1 tab PO Q6H PRN PRN 12/23/20 [History] Meloxicam [Mobic] 15 mg PO DAILY 12/23/20 [History] Sitagliptin Phosphate [Januvia] 25 mg PO DAILY 12/23/20 [History] Travel Risk - International Travel Have you traveled outside of the country in past 3 weeks: No - Coronavirus Screening Are you exhibiting any of the following symptoms?: No Close contact with a COVID-19 positive Pt in past 14-21 Days: No - Vaccine Status Have you recieved a Covid-19 vaccination: No <SHELDON VELASCO - Last Filed: 11/24/22 07:40> - Review of Systems Constitutional: No Symptoms Eyes: No Symptoms Ears, Nose, & Throat: No Symptoms Respiratory: No Symptoms Cardiac: No Symptoms Abdominal/Gastrointestinal: No Symptoms, Constipation Genitourinary Symptoms: No Symptoms Musculoskeletal: No Symptoms Skin: No Symptoms Neurological: No Symptoms Psychological: No Symptoms Endocrine: No Symptoms Hematologic/Lymphatic: No Symptoms Immunological/Allergic: No Symptoms <SHELDON VELASCO - Last Filed: 11/24/22 07:40> - Past Medical History Pertinent Past Medical History: Yes Neurological History: Peripheral Neuropathy Cardiac History: High Cholesterol, Hypertension Respiratory History: No Pertinent History Endocrine Medical History: Diabetes Type II Musculoskeletal History: Arthritis GI Medical History: No Pertinent History History: No Pertinent History Psycho-Social History: No Pertinent History Male Reproductive Disorders: No Pertinent History Other Medical History: Rheumatic Fever, Depression. Sx Hx: L Cubital Tunnel Release, L lower arm sx for mass removal, L Carpal Tunnel Release - Past Surgical History Past Surgical History: Yes Neuro Surgical History: No Pertinent History Cardiac: No Pertinent History Respiratory: No Pertinent History Gastrointestinal: No Pertinent History Genitourinary: No Pertinent History Musculoskeletal: Orthopedic Surgery Male Surgical History: No Pertinent History Other Surgical History: left elbow - Social History Smoking Status: Current every day smoker How long have you smoked: years Exposure to second hand smoke: Yes Drug Use: none Patient Lives Alone: Yes <SHELDON VELASCO - Last Filed: 11/24/22 07:40> - Physical Exam General Appearance: no apparent distress Eye Exam: PERRL/EOMI, eyes nml inspection Ears, Nose, Throat Exam: normal ENT inspection, TMs normal, pharynx normal, moist mucous membranes Neck Exam: normal inspection, non-tender, supple, full range of motion, No meningismus, No mass, No Brudzinski, No Kernig's Respiratory Exam: normal breath sounds, lungs clear, airway intact, No respiratory distress Cardiovascular Exam: tachycardia, capillary refill <2 sec, No murmur Gastrointestinal/Abdomen Exam: soft, normal bowel sounds, No tenderness Rectal Exam: other (Soft stool in rectum, unable to disimpact ) Back Exam: normal inspection, normal range of motion, No CVA tenderness, No vertebral tenderness Extremity Exam: normal inspection, normal range of motion Neurologic Exam: alert, oriented x 3, cooperative, water tender II-XII nml as tested, normal mood/affect, nml cerebellar function, nml station & gait, sensation nml, No motor deficits, No sensory deficit Skin Exam: normal color, warm, dry, No rash Lymphatic Exam: No adenopathy SpO2 Interpretation: normal SpO2: 98 O2 Delivery: Room Air <SHELDON VELASCO - Last Filed: 11/24/22 07:40> - Nursing Vital Signs Nursing Vital Signs: Initial Vital Signs Temperature 98.7 F 11/21/22 04:33 Pulse Rate 119 H 11/21/22 04:33 Respiratory Rate 18 11/21/22 04:33 Blood Pressure 117/85 11/21/22 04:33 O2 Sat by Pulse Oximetry 98 11/21/22 04:33 Pain Scale Pain Intensity 0 Tachy (SHELDON VELASCO) - Course Nursing assessment & vital signs reviewed: Yes <SHELDON VELASCO - Last Filed: 11/24/22 07:40> Ordered Tests: Medication Summary Discontinued Medications Generic Name Dose Route Start Last Admin Trade Name Paulette PRN Reason Stop Dose Admin Lactulose 10 g 11/21/22 07:24 11/21/22 07:31 Lactulose 10 G/15 Ml Ml PO 11/21/22 07:25 10 g ONCE ONE Administration - Progress Counseled pt/family regarding: diagnosis, rad results <SHELDON VELASCO - Last Filed: 11/24/22 07:40> - Progress Progress Note: 11/21/22 06:44 Nursing note and vital signs reviewed No food or housing insecurities noted Fleets enema/soap suds enema per nursing wo much success 11/21/22 06:[address] over to Dr. Delilah moore CT result pending (SHELDON VELASCO) Medical Desision Making - Discussion of managment Reviewed:: Test results, Need for additional workup Agreed on:: Treatment plan, need for follow-up - Diagnostic Testing Diagnostic test were ordered, analyzed, and reviewed by me: Yes Radiological Interpretation: Teleradiologist Report - Risk of complications Low Risk: Low risk of morbidity from additional dx testing or treatment <OBI MAZARIEGOSYESH - Last Filed: 11/21/22 07:25> - Departure Departure Disposition: Home Critical Care Time: No <DELILAH,AIDAN - Last Filed: 11/21/22 07:25> <SHELDON VELASCO - Last Filed: 11/24/22 07:40> - Departure Clinical Impression: Constipation by delayed colonic transit Metastatic primary lung cancer Qualifiers: Laterality: unspecified laterality Qualified Code(s): C34.90 - Malignant neoplasm of unspecified part of unspecified bronchus or lung Condition: Stable Referrals: KIRT SALGADO [Primary Care Provider] - Follow Up with PCP/3 days Instructions: Constipation, Adult (DC) Additional Instructions: Discharge/Care Plan MAYALISANDRO ASAD was seen on 11/21/22 in the Emergency Room. The patient was counseled regarding Diagnosis,Lab results, Imaging studies, need for follow up and when to return to the Emergency Room. Prescriptions given: Discharge Note I have spoken with the patient and/or caregivers. I have explained the patient's condition, diagnosis and treatment plan based on the information available to me at this time. I have answered the patient's and/or caregiver's questions and addressed any concerns. The patient and/or caregivers have as good understanding of the patient's diagnosis, condition and treatment plan as can be expected at this point. The vital signs have been stable. The patient's condition is stable and appropriate for discharge from the emergency department. The patient will pursue further outpatient evaluation with the primary care physician or other designated or consulting physician as outlined in the discharge instructions. The patient and/or caregivers are agreeable to this plan of care and follow-up instructions have been explained in detail. The patient and/or caregivers have received these instruction. The patient/and or caregivers are aware that any significant change in condition or worsening of symptoms should prompt an immediate return to this or the closest emergency department or call 911. LISANDRO TREJO was seen on 04/15/23 n the Emergency Room. At that time you were treated for an emergent condition, during your visit Laboratory, Radiology and/or other procedures may have been ordered. It is very important that you follow-up with your Primary Care Physician KIRT SALGADO within the next 24-48 hours to review your Emergency Room visit and the final results of testing that was ordered. Some test results such as Urine Cultures, Blood Cultures, and other cultures if ordered will not be finalized for 24-48 hours. If you do not have a Primary Care Provider please call the medical records department at [phone] ext [phone] to obtain a copy of your results or you may sign into our patient portal to obtain these results by visiting us @ [email or web address] and completing the following steps: 1. Click on the Patient Portal link 2. Click the Patient Self Enrollment Link to complete the enrollment form and entering your 3. Once the enrollment form is completed you will receive an email with a temporary ID and password at the email address you provided. 4. Next choose a user name and password. Your user name must be at least 4 characters long and your password must be at least 4 characters long. 5. Choose a security question from the list and provide your answer to the question. If you already have signed into the Health Portal you may access your Health Care Information 01/03 by the following steps: 1. Login to our website @ [email or web address] 2. Enter your original user name and password. FAQS The [facility] Health Portal is an online tool that contains your Lab Results, Radiology Reports, Visit History, Discharge Instructions and Health Summary Lab and Radiology Results will not be available for 72 hours on the portal. The Portal is a secure site, passwords are encryted and URLs are re-written so they cannot be copied and pasted. You and authorized family members are the only ones who can access your Portal. Also there is a timeout feature that protects your information if you leave the Portal page open. If you have technical difficulty please use the Contact Us link on the page this will allow you to submit any questions you have regarding the Portal or you may contact the Medical Record Department at [phone] ext [phone]. Prescriptions: Lactulose [Enulose] 10 gm PO QID PRN #300 ml PRN Reason: Constipation Lactulose 10 gm PO QID #300
[2022-11-21 07:20] VITALS: BP 152/90; PULSE 116
[2022-11-21] MEDS ORDERED: Enulose 10 GM/15 ML PO ONE (07:24)
--- NOTE | 2022-11-23 11:44 | XRAY ---
CLINICAL HISTORY:Constipation x4 days w/ lower abd pain. renal stone was removed 2 wks ago by shock treatment. h/o lung cancer- pt being treated w/ chemo now; COMPARISON:None; TECHNIQUES:Multiple axial sections of CT scan of the abdomen and pelvis were carried out without contrast enhancement. Coronal and Sagittal reformations were also acquired. CTDI: 7.48 mGy, DLP: 446,57 mGy*cm; FINDINGS: There is an ill-defined soft tissue thickening is seen in the region of the distal anal canal/ anal verge approximately measures 2.6cm in CC dimension. It is associated with mild adjacent fat stranding and results in mild proximal dilation of the fecal-loaded rectum and distal sigmoid colon. The rest of the large bowel appears normal. Rectum measures 6.1cm in [id number] caliber. This needs further workup including rectal examination and CT contrast. The liver is normal in size. No focal mass seen. Intra and extrahepatic biliary ducts are not dilated. Few calcified granulomas are seen in both lobes of the liver. There is large hyperdense solitary calculus seen in the gallbladder approximately measures 1.9 X 1.7cm.with no signs of cholecystitis. .The spleen appears normal. No evidence of focal mass seen. Few calcified granulomas are seen. Pancreas appears normal. No evidence of mass lesion was noted. Both adrenal glands appear normal. No discrete lesion was noted. Both kidneys are with lobulated contours. No evidence of focal mass, calculus or hydronephrosis was noted. There are multifocal areas of cortical irregularity noted in both kidneys along with mild perinephric fat stranding. Mild pelvicalyceal dilatation in right kidney is seen. Small cortical cyst with focal wall calcification measuring 1.3 x 1.3cm seen at the lower pole of the left kidney. The urinary bladder is significantly distended. The prostate gland is mildly enlarged in size and showing multifocal calcification.Small and the rest of the large bowel loops grossly appear normal. No significant lymphadenopathy was seen. Abdominal and pelvic vasculature shows normal enhancement. No evidence of ascites was noted. Atheromatous calcific changes were seen in the aorta and its branches. On appropriate lung window settings, emphysematous changes are seen in the visualized lung. No soft tissue mass was seen in provided limited section of the chest. Calcified right hilar lymph nodes seen. On bone window settings, Degenerative changes with multilevel osteophytes are seen. Reduced disc space with vacuum phenomenon seen at L4/L5 and L5/S level. There are few well-defined hyperdense areas are seen in both sacral ala likely bone island, however, considering the history of lung carcinoma possibility of sclerotic deposit cannot be excluded. Needs bone scan correlation. IMPRESSION: An ill-defined soft tissue thickening is seen in the region of the distal anal canal/ anal verge approximately measures 2.6cm in CC dimension. It is associated with mild adjacent fat stranding and results in mild proximal dilation of the fecal-loaded rectum and distal sigmoid colon. The rectum measures 6.1cm in [id number] caliber. This needs further workup including local rectal examination and CT contrast/MRI pelvis for further evaluation. Cholelithaisis without cholecystitis. Contour lobulation with small renal cysts and right mild pelvicalyceal dilataton in kidneys along with right tortuoised right ureter and mild perirenal stranding. clinical confirmation is suggested. No focal hepatic, pleuropulmonary or adrenal lesions were detected in unenhanced CT. No significant lymphadenopathy seen. Few well-defined hyperdense areas are seen in both sacral ala likely bone islands, however, considering the history of lung carcinoma possibility of sclerotic deposits cannot be excluded. Needs bone scan correlation. Electronically Signed by: Curtis Florez MD. ( 11/21/2022 06:02:22 [employer])
[2022-11-24 07:41] VITALS: O2SAT 98
== END 2022-11-21 07:39 | disposition home or self-care (01) ==
LOC: ED 04:29
DX: K59.01 Slow transit constipation (principal); C34.90 Malignant neoplasm of unspecified part of unspecified bronchus or lung; E78.5 Hyperlipidemia, unspecified; I10 Essential (primary) hypertension; E11.42 Type 2 diabetes mellitus with diabetic polyneuropathy; Z79.84 Long term (current) use of oral hypoglycemic drugs; Z79.899 Other long term (current) drug therapy; Z28.310 Unvaccinated for COVID-19; Z72.0 Tobacco use
CPT/HCPCS: 74176; 99283; A9270-GY